=== PATIENT | female | born 1955 ===

== ENCOUNTER 2016-08-21 16:09 | Emergency (ER) | payer MEDICAID, OTHER ==
[2016-08-21 16:37] VITALS: BP 118/90; PULSE 62; RESP 18; TEMP 98.2; O2SAT 100
--- NOTE | 2016-08-21 16:48 | ED PDOC ---
Lower Extremity Pain/Injury Time Seen by Provider: 08/21/16 16:39 Chief Complaint (Nursing): Lower Extremity Problem/Injury Chief Complaint (Provider): Left Lower Leg Swelling History Per: Patient History/Exam Limitations: no limitations Onset/Duration Of Symptoms: Persistent (x2 months) Current Symptoms Are (Timing): Still Present Additional Complaint(s): Re Peñaloza is a 61 year old female that presents to the ED with a chief complaint of left lower leg swelling that she has been experiencing for the past two months. Patient states that she saw her PMD in June, and was told she has poor circulation in her left leg. Her swelling has continued to persist , along with pain to the area. She denies any trauma or injury. PMD: Dr. Jerez Past Medical History Reviewed: Historical Data, Nursing Documentation, Vital Signs Vital Signs: Last Vital Signs Temp 98.2 F 08/21/16 16:33 Pulse 62 08/21/16 16:33 Resp 18 08/21/16 16:33 BP 118/90 08/21/16 16:33 Pulse Ox 100 08/21/16 16:33 - Medical History PMH: HTN, Hypercholesterolemia - Surgical History Other surgeries: tubal ligation, left knee surgery - Family History Family History: States: No Known Family Hx - Living Arrangements Living Arrangements: With Family - Social History Current smoker - smoking cessation education provided: No Alcohol: None Drugs: Denies - Allergies Allergies/Adverse Reactions: Allergies Allergy/AdvReac Type Severity Reaction Status Date / Time No Known Allergies Allergy Verified 08/21/16 16:43 Wells Criteria for PE - Wells Criteria for Pulmonary Embolism Clinical Signs and Symptoms of DVT: Yes P.E is #1 Diagnosis, or Equally Likely: No Heart Rate >100: No Immobilization at least 3 days;Surgery previous 4 weeks: No Previous, objectively diagnosed PE or DVT: No Hemoptysis: No Malignancy w/treatment within 6 months, or palliative: No Total Score: 3 Review of Systems ROS Statement: Except As Marked, All Systems Reviewed And Found Negative Constitutional: Negative for: Fever Cardiovascular: Negative for: Chest Pain, Palpitations, Light Headedness Respiratory: Negative for: Cough, Shortness of Breath Gastrointestinal: Negative for: Nausea, Vomiting Musculoskeletal: Positive for: Leg Pain (left lower leg pain and swelling for 2 months) Skin: Negative for: Rash Neurological: Negative for: Headache, Dizziness Physical Exam - Reviewed Nursing Documentation Reviewed: Yes Vital Signs Reviewed: Yes - Physical Exam Appears: Positive for: Non-toxic, No Acute Distress Head Exam: Positive for: ATRAUMATIC, NORMOCEPHALIC Eye Exam: Positive for: Normal appearance Cardiovascular/Chest: Positive for: Regular Rate, Rhythm. Negative for: Murmur Respiratory: Positive for: Normal Breath Sounds. Negative for: Wheezing Back: Negative for: Vertebral Tenderness Extremity: Positive for: Pedal Edema (mild bilateral nonpitting edema), Calf Tenderness (mild left calf tenderness), Other (slight discoloration to left anterior arias with slight tenderness) Neurologic/Psych: Positive for: Alert, Oriented, Gait (steady) - ECG O2 Sat by Pulse Oximetry: 100 (RA) Pulse Ox Interpretation: Normal - Other Rad Doppler left leg X-Ray: Read By Radiologist X-Ray Interpretation: no DVT Medical Decision Making Medical Decision Making: Impression: Left Lower Leg Swelling Plan: * Ibuprofen 600 mg PO * US Left Leg * Reevaluation Doppler is negative. Patient states the Motrin helped the pain. She was advised to follow up with primary doctor for further evaluation. Scribe Attestation: Documented by Latesha Mccrary, acting as a scribe for Georgia Rocha PA-C. Provider Scribe Attestation: All medical record entries made by the Scribe were at my direction and personally dictated by me. I have reviewed the chart and agree that the record accurately reflects my personal performance of the history, physical exam, medical decision making, and the department course for this patient. I have also personally directed, reviewed, and agree with the discharge instructions and disposition. Disposition - Clinical Impression Clinical Impression: Leg pain - Patient ED Disposition Is Patient to be Admitted: No Counseled Patient/Family Regarding: Studies Performed, Diagnosis, Need For Followup - Disposition Referrals: Deacon Jerez MD [Medical Doctor] - Disposition: Routine/Home Disposition Time: 18:19 Condition: STABLE Additional Instructions: Elevate legs as much as possible. Continue with ibuprofen for pain. Follow-up with primary doctor for further evaluation. Instructions: Leg Pain (ED) Print Language: JAPANESE
--- NOTE | 2016-08-21 17:44 | US ---
HISTORY: pain, swelling left leg . PRIORS: None. FINDINGS: 2-D, color and duplex Doppler analysis of the lower extremity venous circulation using routine protocol from the femoral veins through the popliteal veins. Venous compressibility: Normal. Flow and augmentation patterns: Normal. Visualized veins upper third of calf: Normal. Stanley cyst: None. IMPRESSION: No sonographic or Doppler evidence for DVT in left lower extremity.
== END 2016-08-21 18:40 | disposition home or self-care (01) ==
LOC: H.ER 16:09
DX: M79.605 Pain in left leg (principal); R60.0 Localized edema